=== PATIENT | male | born 1960 | race Caucasian/White ===

== ENCOUNTER 2019-09-02 23:32 | Inpatient (IN) ==
[2019-09-03] MEDS ORDERED: IBUPROFEN 400 MG TABLET PO STA (00:45)
[2019-09-03 01:18] LABS: Basophils % 0.5 % (0.0-0.8); Eosinophils # 0.1 10*3/uL (0.0-0.87); Eosinophils % 1.2 % (0.00-10.9); Hematocrit 47.4 VOL% (42.0-52.0); Hemoglobin 15.3 GM/DL (14.0-18.0); Immature Granulocytes % 0.4 %; Immature Granulocytes Absolute 0.03 #; Lymphocytes # 0.8 10*3/uL (1.4-4.0); Lymphocytes % 9.7 % (21.2-54.2); Mean Corpuscular HGB Conc 32.3 GM/DL (32-36); Mean Corpuscular Volume 81.6 FL (87-102); Mean Platelet Volume 9.2 FL (9.6-12.0); Monocytes % 5.2 % (1.7-12.7); Platelet Count 235 T/CUMM (130-400); Red Blood Count 5.81 MC/CUMM (3.8-5.5); Red Cell Distribution Width 15.5 % (9.3-17.3); White Blood Count 7.7 T/CUMM (4-12)
[2019-09-03] MEDS: LACTATED RINGERS 1,000 ML IV SCH (01:29)
[2019-09-03 01:34] LABS: Alanine Aminotransferase 315 U/L (16-61); Albumin 3.7 G/DL (3.4-5.0); Alkaline Phosphatase 159 U/L (45-117); Aspartate Amino Transferase 166 U/L (0-37); Blood Urea Nitrogen 20 MG/DL (7-18); Calcium 8.4 MG/DL (8.5-10.1); Estimated Glom Filtration Rate 53 ML/MIN; Glucose 183 MG/DL (74-106); Osmolality,Calculated 277.1 MOS/KG (273-304); Total Protein 7.8 G/DL (6.4-8.3)
[2019-09-03] MEDS ORDERED: MORPHINE 4 MG/1 ML VIAL IV STA (02:23)
[2019-09-03 04:31] LABS: Apearance,Urine CLEAR (Clear); Bilirubin,Urine Negative (Negative); Blood, Urine Negative (Negative); Glucose,Urine (UA) 50 mg/dL (Negative); Ketones,Urine Negative (Negative); Mucus,Urine Occasional /LPF (Occasional); Nitrite,Urine Negative (Negative); Protein,Urine Negative; RBC,Urine 1 /HPF (0-4); Urine Color Yellow (Yellow); Urine Specific Gravity 1.012 (1.001-1.035); WBC,Urine <1 /HPF (0-6)
[2019-09-03] MEDS ORDERED: PROMETHAZINE 25 MG/1 ML VIAL IM PRN (05:07)
[2019-09-03] MEDS ORDERED: ONDANSETRON 4 MG/2 ML VIAL IV PRN (05:07)
[2019-09-03] MEDS ORDERED: MORPHINE 4 MG/1 ML VIAL IV PRN (05:07)
[2019-09-03] MEDS ORDERED: NICOTINE 21 MG/24 HR PATCH TRANSDERM PRN (05:07)
[2019-09-03] MEDS ORDERED: ALUMINUM/MAGNES/SIMETH MAX STR 30 ML UDCUP PO PRN (05:07)
[2019-09-03] MEDS ORDERED: diphenhydrAMINE CAP 25 MG CAPSULE PO PRN (05:07)
[2019-09-03] MEDS ORDERED: hydrALAZINE 20 MG/1 ML VIAL IV PRN (05:07)
[2019-09-03] MEDS ORDERED: GLUCAGON 1 MG VIAL IM PRN (05:52)
[2019-09-03] MEDS ORDERED: DEXTROSE 10% 250 ML BAG IV PRN (05:53)
[2019-09-03] MEDS: SODIUM CHLORIDE 0.9% 1,000 ML IV SCH ×2 (06:34→15:13)
[2019-09-03] MEDS: INSULIN REGULAR 100 UNIT/ML SUBCUT SCH ×3 (06:48→18:45)
[2019-09-03 06:57] LABS: Risk Ratio 3.22; VLDL CHOLESTEROL 40.6 MG/DL
[2019-09-03] MEDS ORDERED: MAGNESIUM CITRATE 300 ML BOTTLE PO ONE (13:03)
[2019-09-03] MEDS: POTASSIUM CHLORIDE INJ 10 MEQ in LACTATED RINGERS 1,000 ML IV SCH ×2 (15:12→20:27)
[2019-09-03] MEDS ORDERED: ATORVASTATIN 40 MG TABLET PO SCH (21:00)
[2019-09-04] MEDS: LACTATED RINGERS 1,000 ML IV SCH ×2 (01:49→06:10)
[2019-09-04] MEDS: POTASSIUM CHLORIDE INJ 10 MEQ in LACTATED RINGERS 1,000 ML IV SCH ×4 (01:51→17:59)
[2019-09-04] MEDS: INSULIN REGULAR 100 UNIT/ML SUBCUT SCH ×4 (01:55→17:59)
[2019-09-04 07:22] LABS: Basophils % 0.2 % (0.0-0.8); Eosinophils # 0.1 10*3/uL (0.0-0.87); Eosinophils % 2.3 % (0.00-10.9); Hematocrit 43.7 VOL% (42.0-52.0); Hemoglobin 14.2 GM/DL (14.0-18.0); Immature Granulocytes % 0.4 %; Immature Granulocytes Absolute 0.02 #; Lymphocytes # 1.5 10*3/uL (1.4-4.0); Mean Corpuscular HGB Conc 32.5 GM/DL (32-36); Mean Corpuscular Volume 81.1 FL (87-102); Mean Platelet Volume 9.4 FL (9.6-12.0); Monocytes % 8.6 % (1.7-12.7); Neutrophils % 62.5 % (38.7-73.9); Platelet Count 231 T/CUMM (130-400); Red Blood Count 5.39 MC/CUMM (3.8-5.5); Red Cell Distribution Width 15.8 % (9.3-17.3); White Blood Count 5.6 T/CUMM (4-12)
[2019-09-04 07:42] LABS: Albumin 3.1 G/DL (3.4-5.0); Calcium 8.8 MG/DL (8.5-10.1); Total Protein 6.9 G/DL (6.4-8.3)
[2019-09-04 07:48] LABS: Albumin 3.1 G/DL (3.4-5.0); Bilirubin,Direct 0.34 MG/DL (0.0-0.20); Bilirubin,Indirect 0.4 MG/DL (0.0-1.0); Bilirubin,Total 0.7 MG/DL (0.2-1.0); Total Protein 6.1 G/DL (6.4-8.3)
[2019-09-04] MEDS ORDERED: DEXTROSE 10% 250 ML BAG IV PRN (09:13)
[2019-09-04] MEDS: FENOFIBRATE 160 MG TABLET PO SCH (09:41)
[2019-09-04] MEDS ORDERED: INSULIN GLARGINE 100 UNIT/ML SUBCUT SCH (21:00)
[2019-09-05] MEDS: LACTATED RINGERS 1,000 ML IV SCH ×6 (00:41→14:50)
[2019-09-05] MEDS: INSULIN REGULAR 100 UNIT/ML SUBCUT SCH ×3 (01:01→11:32)
[2019-09-05 06:18] LABS: Basophils % 0.7 % (0.0-0.8); Eosinophils # 0.2 10*3/uL (0.0-0.87); Hematocrit 47.3 VOL% (42.0-52.0); Immature Granulocytes % 0.3 %; Immature Granulocytes Absolute 0.02 #; Lymphocytes % 33.5 % (21.2-54.2); Mean Corpuscular HGB Conc 31.7 GM/DL (32-36); Mean Corpuscular Volume 81.7 FL (87-102); Mean Platelet Volume 8.8 FL (9.6-12.0); Monocytes % 9.2 % (1.7-12.7); Neutrophils % 52.3 % (38.7-73.9); Platelet Count 254 T/CUMM (130-400); Red Blood Count 5.79 MC/CUMM (3.8-5.5); Red Cell Distribution Width 15.4 % (9.3-17.3)
[2019-09-05 06:41] LABS: Albumin 3.1 G/DL (3.4-5.0); Bilirubin,Direct 0.21 MG/DL (0.0-0.20); Bilirubin,Indirect 1.1 MG/DL (0.0-1.0); Bilirubin,Total 1.3 MG/DL (0.2-1.0); Calcium 8.9 MG/DL (8.5-10.1); Total Protein 7.1 G/DL (6.4-8.3)
[2019-09-05] MEDS: FENOFIBRATE 160 MG TABLET PO SCH (08:30)
[2019-09-05 11:47] VITALS: BP 125/74
== END 2019-09-05 14:20 | disposition home or self-care (01) | DRG 439 ==
LOC: N.ED 23:32 → N.EDINP 23:32 → SUATTDRO 09-03 05:07 → N.3E 09-03 05:27 → SUATTDRO 09-03 13:32
PROVIDERS: ADMIT Nurse Practitioner Adult Health; ATTEND Internal Medicine